=== PATIENT | male | born 2000 | race Two or more races ===

== ENCOUNTER 2024-10-24 22:39 | Emergency (ER) | payer MEDICAID, SELFPAY ==
[2024-10-24 22:40] VITALS: BP 145/92; PULSE 89; PULSE 90; RESP 18; RESP 20; TEMP 36.8; O2SAT 97; O2SAT 99; BMI 27.1
--- NOTE | 2024-10-24 22:59 | PD.EDSEIZ ---
ED Seizures RME/HPI General Chief Complaint: Seizure Stated Complaint: SEIZURES Time Seen by Provider: 10/24/24 22:56 Arrival date/time: 10/24/24 22:39 RME / HPI RME / HPI Narrative: Dr. Barros?s Main ED Evaluation: 24yo male with a history of seizures BIBA from home presents to the ED for a chief complaint of a seizure. Patient states he had a seizure today when he was taking a nap. He states he forgot to take his daily dose of Aptiom tonight. He denies any tongue biting, incontinence, cough, N/V, fever, chills, sore throat or any other associated symptoms. Patient reports his last seizure was 1 year ago. Related Data Allergies Allergy/AdvReac Type Severity Reaction Status Date / Time No Known Allergies Allergy Verified 10/25/24 00:07 Review of Systems Review of Systems Systems Reviewed: All systems reviewed, normal except as documented Past Medical History Past Medical History CARDIAC: Negative Congestive Heart Failure RESPIRATORY: Negative Chronic Obstructive Pulmonary Disease (COPD) GENITOURINARY: Negative Renal Disease ENDOCRINE: Negative Diabetes Mellitus Type 1 or Diabetes Mellitus Type 2 Social History SMOKING STATUS: Never smoker ED Exam Narrative Physical exam: GENERAL APPEARANCE: alert and oriented x 4, well-developed, well-nourished, no acute distress VITALS: All vitals were reviewed and the pulse ox is 97% on room air, which is normal according to my interpretation. HEENT: Normocephalic, atraumatic; pupils equal, round, reactive to light; EOMI; mucous membranes pink, moist; oropharynx clear NECK: Supple LUNGS: CTABL; no wheezes, no rales, no rhonchi HEART: Regular rate, regular rhythm; normal S1, S2; no murmurs ABDOMEN: non distended; normal BS; soft, no tenderness, no guarding, no rebound; no masses, no organomegaly, no hernia BACK: no CVA tenderness EXTREMITIES: atraumatic; no edema NEUROLOGIC: awake; alert and oriented x4; cranial nerves II-XII grossly intact; no focal sensory or motor deficits PSYCHIATRIC: appropriate mood and affect SKIN: warm, dry, normal color; no rashes Course Course Course Narrative: CXR is ordered to r/o infectious etiology. Quality Measures none Orders Category Date Time Status Principal System Software Engineer Q4H START 00 Care 10/25/24 00:00 Completed Continuous Pulse Oximetry NOW Care 10/25/24 00:00 Completed EKG (ED ONLY) *Do not use* NOW Care 10/25/24 00:00 Completed IV [Insert IV] NOW Care 10/25/24 00:00 Completed Seizure precautions NOW Care 10/25/24 00:00 Completed EKG (ED Only) Stat Exams 10/24/24 23:58 Ordered XR chest 1V portable Stat Exams 10/24/24 23:58 Taken CBC Stat Lab 10/25/24 00:12 Completed CK [Creatine Kinase] Stat Lab 10/25/24 00:54 Completed CMP [Comprehensive Metabolic Panel] Stat Lab 10/25/24 00:54 Completed Free T4 (Free Thyroxine) Stat Lab 10/24/24 23:58 Completed Lactate (Lactic Acid) Stat Lab 10/25/24 00:12 Completed TSH [Thyroid Stimulating Hormone] Stat Lab 10/24/24 23:58 Completed DiphenhydrAMINE INJ [Benadryl Inj] Med 10/25/24 01:03 Discontinued 12.5 mg IVP X1 ONE Ketorolac Inj [Toradol Inj] Med 10/25/24 01:04 Discontinued 30 mg IVP X1 ONE LORazepam [Ativan Inj] Med 10/25/24 00:00 Discontinued 1 mg IVP X1 ONE Metoclopramide Inj [Reglan Inj] Med 10/25/24 01:03 Discontinued 10 mg IVP X1 ONE Sodium Chloride 0.9% 1000 ml [Ns] 1,000 ml Med 10/25/24 00:00 Discontinued IV 999 mls/hr levETIRAcetam INJ [Keppra Inj] Med 10/25/24 00:00 Discontinued 1,000 mg IVP X1 ONE Vital Signs Vital signs: Vital Signs Temperature 98.2 F 10/24/24 22:40 Pulse Rate 89 10/24/24 22:40 Respiratory Rate 20 10/24/24 22:40 Blood Pressure 145/92 H 10/24/24 22:40 Pulse Oximetry (%) 97 10/24/24 22:40 Oxygen Delivery Method Room Air 10/24/24 22:40 Seizure MDM Narrative MDM Narrative:: Scribe Attestation: 10/24/24 - Ronnell, Yari Treviño am scribing for and in the presence of Dr. Barros. Patient data External records reviewed:: [facility] previous records (Per chart review, patient has no previous ED visits or admissions to this facility.) Clinical information provided by:: patient Social determinants that could affect healthcare access:: none Patient has the following chronic illnesses:: none How is presenting disease/condition affected by chronic disease/condition?: no chronic disease Evaluation data The following diagnostics were reviewed and interpreted by me:: lab results, radiology exam(s) and EKG tracing(s) Lab and/or radiology exams considered but not ordered:: none Interpretation Summary: WBC count is 16.7, CMP is normal, Lactic Acid is normal, TSH and Free T4 are normal, according to my interpretation. CXR shows normal cardiac silhouette, normal sharp diaphragmatic edge, no infiltrates, normal costophrenic angles, according to my interpretation. EKG done at 2253, sinus arrhythmia, rate of 78, normal axis, PACs, no acute ischemia, according to my interpretation. Medications / Prescriptions Medications or Prescriptions considered but not ordered:: none Medication administrations:: Medication Administration History Discontinued Medications Diphenhydramine HCl (Diphenhydramine Inj 50 Mg/Ml Vial) 12.5 mg IVP X1 ONE Stop: 10/25/24 01:04 Last Admin: 10/25/24 01:15 Dose: 12.5 mg Documented By: CRISELDA Sodium Chloride (Ns) 1,000 mls @ 999 mls/hr IV .Q1H1M ONE Stop: 10/25/24 01:00 Last Infusion: 10/25/24 02:27 Dose: Infused Documented By: Admin: 10/25/24 00:09 Dose: 999 mls/hr Documented By: CRISELDA Ketorolac Tromethamine (Ketorolac Inj 30 Mg/Ml Vial) 30 mg IVP X1 ONE Stop: 10/25/24 01:05 Last Admin: 10/25/24 01:13 Dose: 30 mg Documented By: CRISELDA Levetiracetam (Levetiracetam Inj 100 Mg/Ml Vial 5ml) 1,000 mg IVP X1 ONE Stop: 10/25/24 00:01 Last Admin: 10/25/24 00:09 Dose: 1,000 mg Documented By: CRISELDA Lorazepam (Lorazepam 2 Mg/Ml Vial) 1 mg IVP X1 ONE Stop: 10/25/24 00:01 Last Admin: 10/25/24 00:09 Dose: 1 mg Documented By: CRISELDA Metoclopramide HCl (Metoclopramide Inj 5 Mg/Ml Vial 2 Ml) 10 mg IVP X1 ONE; Protocol Stop: 10/25/24 01:04 Last Admin: 10/25/24 01:14 Dose: 10 mg Documented By: CRISELDA see above Consultations Consultation(s) initiated? (list below): No Diagnosis Seizure Differential Diagnosis: other (medication noncompliance, seizure 2/2 infection, breakthrough seizure) Most likely diagnosis given after review of the tests above:: breakthrough seizure Admission Indicated Admission indicated?: not indicated Explain why admission is indicated or not indicated:: No criteria for admission. Admission Request Was there a request for admission?: No Disposition Plan Disposition Plan: Discharge Discharge Attestation Discharge Attestation: The patient and all family members were given an opportunity to ask questions and understood the discharge instructions. Discharge instructions specifically effects, indications for sooner follow up or return to the emergency department, and the expected course of current diagnosis. Patient condition: Stable Discharge Plan Plan Patient Disposition: HOME (Self Care) Disposition Comment: Stable for discharge Patient condition on transfer: Stable Prescriptions/Referrals Referrals: [facility] [Outside] - In 1 week Problem List Clinical Impression: Breakthrough seizure, Epileptic seizure Patient/Caregiver Discharge Instructions Discharge Activity: activity as tolerated Education Materials: Ketogenic Diet for Seizures in ..., Self-Care for Epilepsy, Living Well with Epilepsy, ED Seizure, Recurrent (Adult) Additional Instructions: Please return to the emergency department if you are not improving within 48 hours or if you feel like you are worsening in any way and we will help you. Otherwise you should follow-up with your primary care doctor within the next several days. Sleep hygiene refers to?practices that promote quality sleep and maintain a healthy sleep-wake cycle.?It encompasses various habits and routines that contribute to restful and restorative sleep.? [place] Principles of Sleep Hygiene: Regular Sleep Schedule:?Establish a consistent bedtime and wake-up time, even on weekends.? Avoid Naps:?Limit naps to 30 minutes or less, and avoid them in the late afternoon or evening.? Create a Relaxing Bedtime Routine:?Engage in calming activities such as reading, taking a warm bath, or listening to soothing music.? Minimize Light and Noise Exposure:?Keep the bedroom dark, quiet, and cool.?Use blackout curtains, earplugs, or a white noise machine.? Avoid Stimulants:?Limit caffeine intake after noon and avoid alcohol before bed.? Limit Screen Time:?Turn off electronic devices at least 30 minutes before bedtime.?The blue light emitted from screens can interfere with sleep.? Exercise Regularly:?Engage in moderate-intensity exercise most days of the week, but avoid strenuous activities close to bedtime.? Get Enough Sleep:?Aim for 7-9 hours of quality sleep per night.? Manage Stress:?Develop healthy coping mechanisms for stress, such as meditation, yoga, or deep breathing exercises.? Print Language: Somali Stand Alone Forms: [employer] Award Info., Patient Portal Info Letter
--- NOTE | 2024-10-24 23:58 | XR_ITS ---
Examination: AP chest single view Technique: AP portable upright chest single view Exam date and time: October 25, 2024, 12:33 AM Indications: Seizure today Findings: Normal heart size No aspiration pneumonia. The osseous structures are intact Impression: Negative for aspiration pneumonia
[2024-10-25] MEDS: levETIRAcetam INJ 100 MG/ML VIAL 5ML 1000 MG IVP (00:09)
[2024-10-25] MEDS: SODIUM CHLORIDE 0.9% 1000 ML 1,000 ML 999 ML IV (00:09)
[2024-10-25] MEDS: LORazepam 2 MG/ML VIAL 1 MG IVP (00:09)
[2024-10-25 00:12] VITALS: PULSE 98
[2024-10-25 00:23] LABS: Basophils # (Auto) 0.1 Thou/mm3 (0.0-0.2); Basophils % (Auto) 0 % (0-2.5); Eosinophils % (Auto) 0 % (0-10); Hematocrit 43.9 % (41.0-53.0); Hemoglobin 15.3 g/dL (13.5-16.0); Immature Granulocytes % (Auto) 1 % (0-0); Lymphocytes # (Auto) 2.1 Thou/mm3 (1.0-4.8); Lymphocytes % (Auto) 13 % (10-50); Mean Corpuscular HGB Conc 34.9 g/dl (31.0-37.0); Mean Corpuscular Volume 83 fL (80-100); Monocytes # (Auto) 0.9 Thou/mm3 (0.0-0.8); Monocytes % (Auto) 6 % (0-12); Neutrophils # (Auto) 13.5 Thou/mm3 (1.8-7.7); Neutrophils % (Auto) 81 % (37-80); Nucleated Red Blood Cell % 0 /100 WBC (0); Platelet Count 194 Thou/mm3 (140-440); RDW Standard Deviation 37.8 fL (35.1-43.9); Red Blood Count 5.28 Miln/mm3 (4.50-5.90); White Blood Count 16.7 Thou/mm3 (3.8-10.6)
[2024-10-25] MEDS: KETOROLAC INJ 30 MG/ML VIAL IVP (01:13)
[2024-10-25] MEDS: METOCLOPRAMIDE INJ 5 MG/ML VIAL 2 ML 10 MG IVP (01:14)
[2024-10-25] MEDS: DiphenhydrAMINE INJ 50 MG/ML VIAL 12.5 MG IVP (01:15)
[2024-10-25 01:17] VITALS: BP 150/97; PULSE 113; RESP 26; TEMP 37.1; O2SAT 97
[2024-10-25 01:19] LABS: Alanine Aminotransferase 58 U/L (10-49); Albumin, Serum 4.3 gm/dL (3.5-5.0); Albumin/Globulin Ratio 1.7 (1.2-2.2); Alkaline Phosphatase 90 U/L (46-116); Anion Gap 10 (7-16); Aspartate Amino Transferase 26 U/L (0-34); BUN/Creatinine Ratio 12 Ratio (12-20); Bilirubin,Total 0.4 mg/dL (0.3-1.2); Blood Urea Nitrogen 13 mg/dL (9-23); Calcium 9.4 mg/dL (8.3-10.6); Calcium (Corrected) 9.4 mg/dL (8.5-10.1); Carbon Dioxide 24.3 mMol/L (20.0-31.0); Chloride 109 mMol/L (98-107); Creatine Kinase 243 U/L (34-171); Creatinine (Component) 1.1 mg/dL (0.6-1.3); Estimated Creatinine Clearance 113.7 mL/min (>60); Free T4 (Free Thyroxine) 1.16 ng/dL (0.89-1.76); Globulin 2.6 gm/dL (2.3-3.5); Glucose 129 mg/dL (74-106); Osmolality,Calculated 287 (275-295); Potassium 3.9 mMol/L (3.4-5.1); Sodium 143 mMol/L (136-145); Thyroid Stimulating Hormone 0.67 uIU/mL (0.55-4.78); Total Protein 6.9 gm/dL (5.7-8.2); eGFR > 60 See Note
[2024-10-25 03:14] VITALS: BP 128/76; PULSE 100; RESP 16; TEMP 36.7; O2SAT 97
== END 2024-10-25 03:17 | disposition home or self-care (01) ==
PROVIDERS: Emergency Provider Emergency Medicine
DX: G40.909 Epilepsy, unspecified, not intractable, without status epilepticus (principal); I49.8 Other specified cardiac arrhythmias
CPT/HCPCS: 36415; 71045; 80053; 82550; 83605; 84439; 84443; 85025; 93005; 96361; 96374; 96375; 99284; J1200; J1885; J1953; J2060; J2765; J7030